=== PATIENT | female | born 1980 | race Two or more races ===

== ENCOUNTER 2024-01-09 13:30 | Emergency (ER) | payer MEDICAID, OTHER ==
[~2024-01-09] VITALS: Ht 157.5 cm; Wt 77.4 kg
[2024-01-09 14:32] LABS: Urine Bacteria FEW /hpf (None Seen); Urine Blood 2+ /uL (Negative); Urine Color Light-Yellow (Yellow); Urine Mucus FEW (None Seen); Urine Protein, UAD 1+ (Negative); Urine Specific Gravity 1.019 (1.001-1.035); Urine Urobilinogen Normal (Negative); Urine WBC 261 /hpf (0 - 5); Urine pH 5.5 (5.0-9.0)
[2024-01-09 14:33] LABS: Urine Clarity Cloudy (Clear)
[2024-01-09] MEDS ORDERED: CEPH500C PO (15:09)
[2024-01-09 15:45] VITALS: BP 136/94
[2024-01-09 16:30] VITALS: PULSE 93; RESP 18; O2SAT 96
== END 2024-01-09 18:04 | disposition home or self-care (01) ==
LOC: ER 13:30
DX: N39.0 Urinary tract infection, site not specified (principal); R20.8 Other disturbances of skin sensation; Z87.440 Personal history of urinary (tract) infections
CPT/HCPCS: 81001